=== PATIENT | male | born 2005 | race Two or more races ===

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

== ENCOUNTER 2025-01-06 21:17 | Emergency (ER) | payer OTHER, SELFPAY ==
[2025-01-06] MEDS ORDERED: KETOROLAC 30 MG/ML INJ ONE (23:02)
[2025-01-06] MEDS ORDERED: METOCLOPRAMIDE 10 MG/2mL INJ ONE (23:02)
[2025-01-06] MEDS ORDERED: DIPHENHYDRAMINE 50 MG/ML VIAL ONE (23:03)
[2025-01-06] MEDS ORDERED: FAMOTIDINE 20 MG/2 ML VIAL IV ONE (23:03)
[2025-01-06] MEDS ORDERED: ASPIRIN 81 MG CHEWABLE TABLET ONE (23:03)
[2025-01-06] MEDS ORDERED: MAGNES/ALUMIN/SIMET 30ML UCUP ONE (23:04)
[2025-01-06] MEDS ORDERED: NA CHLORIDE 0.9% 1,000 ML ONE (23:04)
[2025-01-06 23:32] LABS: PT Prothrombin Time 13.7 SECONDS (10-13.0); Protime INR 1.22
[2025-01-06 23:35] LABS: Absolute Lymphocytes (CBC) 2.1 K/uL (0.7-4.9); Hematocrit 42.9 % (39.6-49.0); Hemoglobin 14.4 g/dL (13.6-17.9); MCH 28.0 pg (27.0-35.0); MCHC 33.7 g/dL (32.0-36.0); MCV 83.1 fL (80-100); MPV 8.6 fL (7.6-11.3); Nucleated RBC Absolute Count 0.0 (0-0); Nucleated Red Blood Cells % 0.3 % (0-0); RBC Red Blood Cell Count 5.16 M/uL (4.33-5.43); White Blood Count 9.00 thou/uL (4.3-10.9)
[2025-01-06 23:45] LABS: ALT/SGPT 39.0 U/L (16-61); AST/SGOT 17.0 U/L (15-37); Albumin 4.2 g/dL (3.4-5.0); Albumin/Globulin Ratio 1.1 (1.1-1.8); Alkaline Phosphatase 67.0 U/L (45-117); Anion Gap 11.4 mEq/L (5.0-15.0); BUN Blood Urea Nitrogen 10.0 mg/dL (7-18); Bilirubin Indirect, Calculated 0.8 mg/dL (0.2-0.8); Globulin 3.8 g/dL (2.3-3.5); Glucose Level 84.0 mg/dL (74-106); Magnesium 2.1 mg/dL (1.6-2.4); NT PRO-BNP 143.0 pg/mL (<125); Potassium 3.4 mEq/L (3.5-5.1); Troponin High Sensitivity 5.6 pg/mL (<58.9)
--- NOTE | 2025-01-07 01:29 | RAD REPORT ---
EXAM: CT CHEST ANGIOGRAPHY WITH IV CONTRAST HISTORY: CHEST PAIN COMPARISON: None Available TECHNIQUE: Multiple helical axial tomographic images were obtained of the chest following administration of intr avenous contrast per angiographic protocol. MIP reformatted images were obtained. This exam was performed according to our departmental dose-optimization program, which includes autom ated exposure control, adjustment of the mA and/or kV according to patient size and/or use of iterative reconstruction technique. FINDINGS: Thyroid gland: unremarkable. Axilla: unremarkable. Pulmonary arteries: Evaluation of the subsegmental and distal segmental pulmonary arteries is limited due to suboptimal enhancement. No evidence of pulmonary embolism within the main, right/left, lobar, or proximal segmental pulmonary arteries. Aorta: No evidence of aortic dissection or aneurysm. Mediastinum: Unremarkable. No adenopathy. Heart: Heart is normal in size. Lungs/airways: No consolidation. Airways are patent. Pleural spaces: No significant pleural effusion. No pneumothorax. Osseous: Unremarkable. Soft tissues: Unremarkable. Visualized abdomen: Unremarkable. IMPRESSION: 1. Evaluation of the subsegmental and distal segmental pulmonary arteries is limited due to subopti mal enhancement. No evidence of pulmonary embolism within the main, right/left, lobar, or proximal segmental pulmonary arteries. 2. No acute intrathoracic abnormality. Electronically signed by: Elian Duran MD 01/07/2025 01:26 AM CDT Due to temporary technical issues with the PACS/[employer] reporting system, reports are being kee d by the in-house radiologist without review as a courtesy to ensure prompt reporting the interpreting radiologist is fully responsible for the content of the report. Transcribed Date/Time: 01/07/2025 1:29 AM
--- NOTE | 2025-01-07 02:36 | EDPHYS ---
Physician Documentation [facility] Name: Francisco Curry Age: 19 yrs Sex: Male : 2005 Arrival Date: 01/06/2025 Time: 21:17 Bed 5 Private MD: ED Physician Richi Hassan HPI: 01/06 21:20 This 19 yrs old Other Race Male presents to ER via Unassigned with complaints of Chest sp4 Pain, Numbness Of Arm. 01/07 19:23 19-year-old male presents with complaint of left-sided chest pain associated with sp4 numbness of the left arm.. Historical: - Allergies: 01/06 21:32 No Known Allergies; bp - PMHx: 21:32 CARDIOMEGALY (RIGHT SIDE); bp - PSHx: 21:32 None; CYST REMOVED FROM TAILBONE; bp - Immunization history:: Adult Immunizations up to date. - Infectious Disease History:: Denies. - Social history:: Smoking status: Reported history of juuling and/or vaping. Patient uses Patient/guardian denies using alcohol, street drugs, IV drugs. - Family history:: not pertinent. ROS: 01/08 02:49 Constitutional: Negative for fever, chills, and weight loss, positive for acute chest sp4 pain and numbness of the left arm All other systems are negative, Exam: 01/07 01:19 Constitutional: This is a well developed, well nourished patient who is awake, alert, sp4 and in no acute distress. Head/Face: Normocephalic, atraumatic. Eyes: Pupils equal round and reactive to light, extra-ocular motions intact. Lids and lashes normal. Conjunctiva and sclera are not injected. Cornea within normal limits. Periorbital areas with no swelling, redness, or edema. ENT: Nares patent. No nasal discharge, no septal abnormalities noted. Tympanic membranes are normal and external auditory canals are clear. Oropharynx with no redness, swelling, or masses, exudates, or evidence of obstruction, uvula midline. Mucous membranes moist. Neck: Trachea midline, no thyromegaly or masses palpated, and no cervical lymphadenopathy. Supple, full range of motion without nuchal rigidity, or vertebral point tenderness. Chest/axilla: Normal chest wall appearance and motion. Nontender with no deformity. No lesions are appreciated. Cardiovascular: Regular rate and rhythm with a normal S1 and S2. No gallops, murmurs, or rubs. No pulse deficits. Respiratory: Lungs have equal breath sounds bilaterally, clear to auscultation and percussion. No rales, rhonchi or wheezes noted. No increased work of breathing, no retractions or nasal flaring. Abdomen/GI: Soft, with normal bowel sounds. No distension or tympany. No guarding or rebound. No evidence of tenderness throughout. Back: No spinal tenderness. No costovertebral tenderness. Skin: Warm, dry with normal turgor. Normal color with no rashes, no lesions, and no evidence of cellulitis. MS/ Extremity: Pulses equal, no cyanosis. Neurovascular intact. Full, normal range of motion. Neuro: Awake and alert, GCS 15, oriented to person, place, time, and situation. Cranial nerves II-XII grossly intact. Motor strength 5/5 in all extremities. Sensory grossly intact. Psych: Awake, alert, with orientation to person, place and time. Behavior, mood, and affect are within normal limits ECG was reviewed by the Attending Physician. EKG at 2310 normal sinus rhythm rate 66 otherwise normal EKG, no ST elevation or depression. Vital Signs: 01/06 21:27 BP 121 / 83; Pulse 82; Resp 20; Temp 97.4; Pulse Ox 98% ; Weight 127.01 kg; Height 6 bp ft. 3 in. ; Pain 8/10; 23:10 BP 130 / 83; Pulse 72; Resp 18; Pulse Ox 98% ; cp4 01/07 00:32 BP 115 / 78; Pulse 61; Resp 18; Pulse Ox 97% ; cp4 01:30 BP 111 / 72; Pulse 70; Resp 18; Pulse Ox 98% ; cp4 03:23 BP 114 / 74; Pulse 66; Resp 18; Pulse Ox 98% ; cp4 01/06 21:27 Body Mass Index 35.00 (127.01 kg, 190.5 cm) - Percentile 98.6 % bp 01/06 21:27 Pain Scale: Adult bp [place] Coma Score: 01:19 Eye Response: spontaneous(4). Verbal Response: oriented(5). Motor Response: obeys sp4 commands(6). Total: 15. MDM: 01/06 21:21 Medical Screening Exam initiated sp4 01/07 02:33 ED course: FINDINGS: Thyroid gland: unremarkable. Axilla: unremarkable. Pulmonary sp4 arteries: Evaluation of the subsegmental and distal segmental pulmonary arteries is limited due to suboptimal enhancement. No evidence of pulmonary embolism within the main, right/left, lobar, or proximal segmental pulmonary arteries. Aorta: No evidence of aortic dissection or aneurysm. Mediastinum: Unremarkable. No adenopathy. Heart: Heart is normal in size. Lungs/airways: No consolidation. Airways are patent. Pleural spaces: No significant pleural effusion. No pneumothorax. Osseous: Unremarkable. Soft tissues: Unremarkable. Visualized abdomen: Unremarkable. IMPRESSION: 1. Evaluation of the subsegmental and distal segmental pulmonary arteries is limited due to suboptimal enhancement. No evidence of pulmonary embolism within the main, right/left, lobar, or proximal segmental pulmonary arteries. 2. No acute intrathoracic abnormality. Electronically signed by: Elian Duran MD 01/07/2025 01:26 AM. 01/08 02:49 Differential diagnosis: acute pericarditis, anxiety, chest wall pain, costochondritis, sp4 esophagitis, gastritis. HEART Score: History: Slightly Suspicious (0), ECG: Normal (0), Age: < or = 45 years (0), Risk Factors: No Risk Factors Known (0), Troponin: < or = 1 x Normal Limit (0), Total Score = 0. Data reviewed: vital signs, nurses notes, old medical records, lab test result(s), EKG, radiologic studies, CT scan. Consideration of Admission/Observation Escalation of care including admission/observation considered. ED course: Stable for discharge home. Patient was referred to local chronograph operator.. 01/06 21:21 Order name: Basic Metabolic Panel; Complete Time: : sp4 01/06 21:21 Order name: CBC with Diff; Complete Time: : sp4 01/06 21:21 Order name: LFT's; Complete Time: : sp4 01/06 21:21 Order name: Magnesium; Complete Time: : sp4 01/06 21:21 Order name: NT PRO-BNP; Complete Time: : sp4 01/06 21:21 Order name: PT-INR; Complete Time: sp4 01/06 21:21 Order name: Troponin HS; Complete Time: 01:19 sp4 01/06 21:21 Order name: XRAY Chest (1 view) 4 01/06 22:34 Order name: CT Chest For PE Angio; Complete Time: 02:26 sp4 01/06 21:21 Order name: EKG; Complete Time: 21:21 sp4 01/06 21:21 Order name: Cardiac monitoring; Complete Time: 23:07 4 01/06 21:21 Order name: EKG - Nurse/Tech; Complete Time: 23:07 4 01/06 21:21 Order name: IV Saline Lock; Complete Time: 23:07 sp4 01/06 21:21 Order name: Labs collected and sent; Complete Time: 23:07 4 01/06 21:21 Order name: O2 Per Protocol; Complete Time: 23: 4 01/06 21:21 Order name: O2 Sat Monitoring; Complete Time: 23:07 sp4 EC/29 23:10 Rate is 66 beats/min. Rhythm is regular, Normal Sinus Rhythm. QRS [place] is Normal. AR sp4 interval is normal. QRS interval is normal. QT interval is normal. No Q waves. T waves are Inverted in leads III, aVF. No ST changes noted. Clinical impression: No evidence of ischemia. Interpreted by me. Reviewed by me. Administered Medications: 23:28 Drug: NS 0.9% IV 1000 ml IV at 1000 ml once; to be given as a bolus over 60 minutes 4 Route: IV; Rate: 1000 ml; Site: right antecubital; 01/07 03:24 Follow up: IV Status: Completed infusion [facility] 01/06 23:28 Drug: Ketorolac IVP 30 mg IVP once Route: IVP; Site: right antecubital; 4 01/07 03:24 Follow up: Response: No adverse reaction; Pain is decreased 4 01/06 23:28 Drug: metoCLOPramide IVP 10 mg IVP once; over 1 to 2 minutes Route: IVP; Site: right 4 antecubital; 01/07 03:24 Follow up: Response: No adverse reaction [facility] 01/06 23:28 Drug: diphenhydrAMINE IVP 25 mg IVP once Route: IVP; Site: right antecubital; 4 01/07 03:24 Follow up: Response: No adverse reaction cp4 01/06 23:28 Drug: Aspirin PO Chewable Tablet 324 mg PO once; 81 mg tablets x 4 Route: PO; cp4 01/07 03:24 Follow up: Response: No adverse reaction cp4 01/06 23:28 Drug: Famotidine IVP 20 mg IVP once; dilute with 10 mL 0.9% NaCl; give over 2 minutes cp4 Route: IVP; Site: right antecubital; 01/07 03:24 Follow up: Response: No adverse reaction cp4 01/06 23:28 Drug: Alum-Mag Hydroxide-Simeth PO Suspension (200 mg-200 mg-20 mg/5 mL) 30 ml PO once cp4 Route: PO; 01/07 03:23 Follow up: Response: No adverse reaction cp4 Disposition: 01/08 02:51 Chart complete. sp4 Disposition Summary: 01/07/25 02:35 Discharge Ordered Notes: Location: Home sp4 Problem: new sp4 Symptoms: have improved sp4 Condition: Stable sp4 Diagnosis - Acute noncardiac chest pain, gastroesophageal reflux disease, acute acid reflux sp4 Followup: sp4 - With: Jadon Harris MD - When: 7 - 10 days - Reason: Recheck today's complaints Discharge Instructions: - Discharge Summary Sheet sp4 - Food Choices for Gastroesophageal Reflux Disease, Adult, [id number] sp4 Forms: - Patient Portal Instructions sp4 Prescriptions: - pantoprazole 40 mg Oral tablet, delayed release (enteric coated) - take 1 tablet ORAL route daily for 30 days; 30 tablet; Refills: 0, Product sp4 Selection Permitted Signatures: Dispatcher [employer] Christiano Abdul RN RN bp Potepalov, Sergey, MD MD sp4 Ninfa Torres
--- NOTE | 2025-01-07 02:36 | ER ---
Nurse's Notes [facility] Name: Francisco Curry Age: 19 yrs Sex: Male : 2005 Arrival Date: 01/06/2025 Time: 21:17 Bed 5 Private MD: Diagnosis: Acute noncardiac chest pain, gastroesophageal reflux disease, acute acid reflux Presentation: 01/06 21:27 Chief complaint: Patient states: CP STARTED 1 HR AGO. HURTS WHEN HE TAKES A DEEP bp BREATH. HIS ARMS FEEL SORE. Coronavirus screen: At this time, the client does not indicate any symptoms associated with coronavirus-19. Ebola Screen: No symptoms or risks identified at this time. Initial Sepsis Screen: Does the patient meet any 2 criteria? No. Patient's initial sepsis screen is negative. Does the patient have a suspected source of infection? No. Patient's initial sepsis screen is negative. Risk Assessment: Do you want to hurt yourself or someone else? Patient reports no desire to harm self or others. Onset of symptoms was January 06, 2025. 21:27 Method Of Arrival: Ambulatory bp 21:27 Acuity: RADHA 3 bp Triage Assessment: 21:32 General: Appears in no apparent distress. comfortable, Behavior is calm, cooperative, bp appropriate for age. Pain: Complains of pain in chest. Neuro: No deficits noted. Cardiovascular: Reports chest pain, shortness of breath. Respiratory: Airway is patent Respiratory effort is even, unlabored, Respiratory pattern is regular, symmetrical. Historical: - Allergies: 21:32 No Known Allergies; bp - PMHx: 21:32 CARDIOMEGALY (RIGHT SIDE); bp - PSHx: 21:32 None; CYST REMOVED FROM TAILBONE; bp - Immunization history:: Adult Immunizations up to date. - Infectious Disease History:: Denies. - Social history:: Smoking status: Reported history of juuling and/or vaping. Patient uses Patient/guardian denies using alcohol, street drugs, IV drugs. - Family history:: not pertinent. Screenin:07 [facility] ED Fall Risk Assessment (Adult) History of falling in the last 3 months, cp4 including since admission No falls in past 3 months (0 pts) Confusion or Disorientation No (0 pts) Intoxicated or Sedated No (0 pts) Impaired Gait No (0 pts) Mobility Assist Device Used No (0 pt) Altered Elimination No (0 pt) Score/Fall Risk Level 0 - 2 = Low Risk Oriented to surroundings, Maintained a safe environment, Assessed \T\ reinforced patient's understanding of fall precautions, Hourly rounding (assess needs \T\ fall precautionary measures) done. Abuse screen: Denies threats or abuse. Denies injuries from another. Nutritional screening: No deficits noted. Tuberculosis screening: No symptoms or risk factors identified. Never had TB. Assessment: 23:07 General: Appears in no apparent distress. uncomfortable, Behavior is calm, cooperative, cp4 appropriate for age. Pain: Complains of pain in chest Pain does not radiate. Pain currently is 8 out of 10 on a pain scale. Pain began 2 hours ago. Neuro: Level of Consciousness is awake, alert, obeys commands, Oriented to person, place, time, situation. Cardiovascular: Reports chest pain, Patient's skin is warm and dry. Rhythm is sinus rhythm. Respiratory: Airway is patent Respiratory effort is even, unlabored. GI: No signs and/or symptoms were reported involving the gastrointestinal system. : No signs and/or symptoms were reported regarding the genitourinary system. EENT: No signs and/or symptoms were reported regarding the EENT system. Derm: No signs and/or symptoms reported regarding the dermatologic system. Musculoskeletal: No signs and/or symptoms reported regarding the musculoskeletal system. 01/07 00:00 Reassessment: Patient appears in no apparent distress at this time. Patient and/or cp4 family updated on plan of care and expected duration. Pain level reassessed. Patient is alert, oriented x 3, equal unlabored respirations, skin warm/dry/pink. 01:00 Reassessment: Patient appears in no apparent distress at this time. Patient and/or cp4 family updated on plan of care and expected duration. Pain level reassessed. Patient is alert, oriented x 3, equal unlabored respirations, skin warm/dry/pink. 02:00 Reassessment: Patient appears in no apparent distress at this time. Patient and/or cp4 family updated on plan of care and expected duration. Pain level reassessed. Patient is alert, oriented x 3, equal unlabored respirations, skin warm/dry/pink. 03:00 Reassessment: Patient appears in no apparent distress at this time. Patient and/or cp4 family updated on plan of care and expected duration. Pain level reassessed. Patient is alert, oriented x 3, equal unlabored respirations, skin warm/dry/pink. Vital Signs: 01/06 21:27 BP 121 / 83; Pulse 82; Resp 20; Temp 97.4; Pulse Ox 98% ; Weight 127.01 kg; Height 6 bp ft. 3 in. ; Pain 8/10; 23:10 BP 130 / 83; Pulse 72; Resp 18; Pulse Ox 98% ; cp4 01/07 00:32 BP 115 / 78; Pulse 61; Resp 18; Pulse Ox 97% ; cp4 01:30 BP 111 / 72; Pulse 70; Resp 18; Pulse Ox 98% ; cp4 03:23 BP 114 / 74; Pulse 66; Resp 18; Pulse Ox 98% ; cp4 01/06 21:27 Body Mass Index 35.00 (127.01 kg, 190.5 cm) - Percentile 98.6 % bp 01/06 21:27 Pain Scale: Adult bp [place] Coma Score: 01:19 Eye Response: spontaneous(4). Verbal Response: oriented(5). Motor Response: obeys sp4 commands(6). Total: 15. ED Course: 01/06 21:18 Patient arrived in ED. im 21:20 Richi Hassan MD is Attending Physician. sp4 21:32 Triage completed. bp 21:32 Arm band placed on right wrist. bp 22:03 XRAY Chest (1 view) In Process Unspecified. EDMS 23:07 Bed in low position. Call light in reach. Side rails up X2. Client placed on continuous cp4 cardiac and pulse oximetry monitoring. NIBP monitoring applied. cloth mercerizing supervisor on. Pulse ox on. NIBP on. 23:07 No provider procedures requiring assistance completed. Initial lab(s) drawn, by ED cp4 staff, sent to lab. EKG done, by ED staff, reviewed by Richi Hassan MD. Inserted saline lock: 20 gauge in right antecubital area, using aseptic technique. Blood collected. Patient maintains SpO2 saturation greater than 95% on room air. 23:10 Ninfa Torres is Primary Nurse. cp4 23:13 EKG done, by electronic tech. reviewed by Richi Hassan MD. ts3 01/07 00:17 CT Chest For PE Angio In Process Unspecified. EDMS 02:33 Jadon Harris MD is Referral Physician. sp4 03:00 Provided Education on: chest pain. cp4 03:00 intact, bleeding controlled, No redness/swelling at site. Pressure dressing applied. cp4 Administered Medications: 01/06 23:28 Drug: NS 0.9% IV 1000 ml IV at 1000 ml once; to be given as a bolus over 60 minutes cp4 Route: IV; Rate: 1000 ml; Site: right antecubital; 01/07 03:24 Follow up: IV Status: Completed infusion cp4 01/06 23:28 Drug: Ketorolac IVP 30 mg IVP once Route: IVP; Site: right antecubital; cp4 01/07 03:24 Follow up: Response: No adverse reaction; Pain is decreased cp4 01/06 23:28 Drug: metoCLOPramide IVP 10 mg IVP once; over 1 to 2 minutes Route: IVP; Site: right cp4 antecubital; 01/07 03:24 Follow up: Response: No adverse reaction cp4 01/06 23:28 Drug: diphenhydrAMINE IVP 25 mg IVP once Route: IVP; Site: right antecubital; cp4 01/07 03:24 Follow up: Response: No adverse reaction cp4 01/06 23:28 Drug: Aspirin PO Chewable Tablet 324 mg PO once; 81 mg tablets x 4 Route: PO; cp4 01/07 03:24 Follow up: Response: No adverse reaction cp4 01/06 23:28 Drug: Famotidine IVP 20 mg IVP once; dilute with 10 mL 0.9% NaCl; give over 2 minutes cp4 Route: IVP; Site: right antecubital; 01/07 03:24 Follow up: Response: No adverse reaction cp4 01/06 23:28 Drug: Alum-Mag Hydroxide-Simeth PO Suspension (200 mg-200 mg-20 mg/5 mL) 30 ml PO once cp4 Route: PO; 01/07 03:23 Follow up: Response: No adverse reaction cp4 Medication: 01/06 23:07 VIS not applicable for this client. cp4 Outcome: 01/07 02:35 Discharge ordered by . sp4 03:00 Discharged to home ambulatory, cp4 03:00 Condition: stable 03:00 Discharge instructions given to patient, family, Instructed on discharge instructions, follow up and referral plans. medication usage, Demonstrated understanding of instructions, follow-up care, medications, Prescriptions given X 1, 03:30 Patient left the ED. cp4 Signatures: Dispatcher [employer] Christiano Abdul, RN RN Richi Hampton MD MD sp4 Rissa Lucero Christina cp4 Shirley Erickson 3
[2025-01-07 03:57] VITALS: TEMP 97.4
[2025-01-07 04:01] VITALS: O2SAT 98
[2025-01-07 04:02] VITALS: BP 114/74
--- NOTE | 2025-01-07 05:18 | RAD REPORT ---
EXAMINATION: ONE VIEW CHEST XR CLINICAL INDICATION: Male, 19 years old.,CHEST PAIN TECHNIQUE: Frontal chest projection is submitted. Examination is limited by patient positioning and t echnique. COMPARISON: No prior exam. FINDINGS: The lungs are well inflated and clear. No pneumothorax or sizable effusion. The heart is normal in s ize. Mediastinal contours are unremarkable. IMPRESSION: No acute intrathoracic abnormalities.
== END 2025-01-07 03:30 | disposition home or self-care (01) ==
LOC: ER 21:17
DX: K21.9 Gastro-esophageal reflux disease without esophagitis (principal)
CPT/HCPCS: 36415; 71045; 71275; 80048; 80076; 83735; 83880; 84484; 85025; 85610; 93005; 96361; 96374; 96375; 99285; J1200; J1885; J2765; J7030; Q9967